=== PATIENT | male | born 1985 | race Caucasian/White ===

== ENCOUNTER → 2019-01-06 | Outpatient (CLI) | payer OTHER ==
--- NOTE | 2019-01-06 07:06 | REP ---
Clinical: Status post bilateral lower extremity ablation with pain . Technique: Akins scale and color Doppler evaluation using linear high frequency transducer. Findings: Ultrasound examination of the right and left lower extremity deep venous structures from the common femoral vein to the popliteal vein demonstrates normal compressibility flow and wave patterns in response to respiration and augmentation. There is no evidence for deep venous thrombosis. Impression: No evidence for deep venous thrombosis. Electronically Signed by Srinath Patel MD 01/06/2019 06:58 A
== END ==
LOC: M RAD 06:22
PROVIDERS: ATTEND Nurse Practitioner Family
DX: I83.893 Varicose veins of bilateral lower extremities with other complications (principal)

== ENCOUNTER 2019-01-13 14:12 | Emergency (ER) | payer OTHER ==
[~2019-01-13] VITALS: Ht 177.8 cm; Wt 77.3 kg
[2019-01-13] MEDS ORDERED: IBUP-1022 PO (16:23)
[2019-01-13] MEDS ORDERED: HYDR-3713 (16:23)
--- NOTE | 2019-01-13 18:55 | REPVR ---
PROCEDURE INFORMATION: Exam: US Duplex Right Lower Extremity Veins, Limited Exam date and time: 01/13/2019 6:28 PM Clinical history: 33 years old, male; Pain; Leg, lower; Right; Prior surgery; Surgery date: <1 month; Surgery type: S/P bilateral varicose vein ablation 01/03/19; Additional info: Had stippling and vein ablation, now swelling, lump calf TECHNIQUE: Imaging protocol: Real-time Duplex ultrasound of the Right Lower Extremity with 2-D ybarra scale, color Doppler flow and spectral waveform analysis with image documentation. Limited exam was focused on the right lower extremity veins. COMPARISON: US Duplex, Ext LOWER veins, bilat BILATERAL 01/06/2019 6:39 AM FINDINGS: Right deep veins: Unremarkable. The common femoral, femoral, proximal profunda femoral and popliteal veins are patent without thrombus. Normal Doppler waveforms. Normal compressibility and/or augmentation response. Right superficial veins: Unremarkable. Saphenofemoral junction is patent without thrombus. Soft tissues: Unremarkable. IMPRESSION: No acute findings. No evidence of deep vein thrombosis. Electronically signed by: Reji Diamond On 01/13/2019 18:55:23 PM
--- NOTE | 2019-01-13 18:57 | REPVR ---
PROCEDURE INFORMATION: Exam: US Right Non-Vascular Joint or Other Extremity Structure, Limited Lower Extremity Exam date and time: 01/13/2019 6:28 PM Clinical history: 33 years old, male; Pain; Lower leg; Right; Prior surgery; Surgery date: <1 month; Surgery type: S/P bilateral varicose vein ablation; Additional info: Had stippling/vein ablation, pls look at [facility] calf TECHNIQUE: Imaging protocol: Right US Non-Vascular Joint or Other Extremity Structure. Limited exam of the lower extremity. COMPARISON: No relevant prior studies available. FINDINGS: Soft tissues: Imaging of the medial aspect of the right calf demonstrates subcutaneous edema. There is a complex fluid collection in the deep subcutaneous fat adjacent to the muscles and greater saphenous vein measuring 2.4 x 0.8 x 1.3 cm. Finding may represent a postoperative seroma. IMPRESSION: Imaging of the medial aspect of the right calf demonstrates subcutaneous edema. There is a complex fluid collection in the deep subcutaneous fat adjacent to the muscles and greater saphenous vein. Finding may represent a postoperative seroma. Electronically signed by: Reji Diamond On 01/13/2019 18:56:57 PM
[2019-01-13 19:20] VITALS: BP 109/60
== END 2019-01-13 19:24 | disposition home or self-care (01) ==
LOC: M ED 14:12
DX: I97.648 Postprocedural seroma of a circulatory system organ or structure following other circulatory system procedure (principal); R22.41 Localized swelling, mass and lump, right lower limb; Z79.1 Long term (current) use of non-steroidal anti-inflammatories (NSAID)